=== PATIENT | female | born 1960 | race Caucasian/White ===

== ENCOUNTER 2024-04-11 06:41 | Day surgery (SDC) | payer OTHER ==
[~2024-04-11] VITALS: Ht 149.9 cm; Wt 82.2 kg
[~2024-04-11 06:41] MED LIST: ALBU18HF12 PO; ATOR10TA69 PO; CETI10TA58 PO; CHOL200059 PO; DOCU100C33 PO; EMPA10TA3 PO; ESCI-8 PO; METF-445 PO; MONT-40 PO; OMEP20CA12 PO; PLEC3TAB2 PO; [UNRECOGNIZED DRUG - CODE] PO
[2024-04-11] MEDS ORDERED: SODIUM CHLORIDE 0.9% 1,000 ML ONE (07:18)
[2024-04-11] MEDS: SODIUM CHLORIDE 0.9% 1,000 ML IV ONE (07:43)
[2024-04-11] MEDS ORDERED: FentaNYL CITRATE PF 100 MCG/2 ML VIAL ONE (08:01)
[2024-04-11] MEDS ORDERED: MIDAZOLAM HCL 2 MG/2 ML VIAL ONE (08:02)
[2024-04-11 08:26] LABS: GLUCOMETER DEV NAME(LOC) SDS.; GLUCOSE,POINT OF CARE 122 MG/DL (70-110)
[2024-04-11 09:30] VITALS: PULSE 68; RESP 18; O2SAT 98
[2024-04-11] MEDS ORDERED: MethylPREDNISolone SOD SUCC 125 MG/2 ML VIAL ONE (09:38)
[2024-04-11] MEDS: MethylPREDNISolone SOD SUCC 125 MG/2 ML VIAL IVP ONE (10:00)
[2024-04-11] MEDS ORDERED: DiphenhydrAMINE HCL 50 MG/ML VIAL ONE (10:32)
[2024-04-11] MEDS ORDERED: LIDOCAINE 4% 50 ML SOLUTION ONE (12:00)
[2024-04-11] MEDS ORDERED: LIDOCAINE 2% 11 ML JELLY ONE (12:00)
[2024-04-11] MEDS ORDERED: BENZOCAINE 20% 50 MCG/SPRAY 57 GM ONE (12:00)
[2024-04-11] MEDS ORDERED: ALBUTEROL SULFATE 2.5 MG/0.5 ML NEB SOLUTION NEB ONE (12:00)
== END 2024-04-11 13:10 | disposition home or self-care (01) ==
LOC: SURGERY 06:41
PROVIDERS: ATTEND Internal Medicine Critical Care Medicine
DX: R05.3 Chronic cough (principal); R04.2 Hemoptysis; J38.4 Edema of larynx; E11.9 Type 2 diabetes mellitus without complications; B37.0 Candidal stomatitis; Z79.899 Other long term (current) drug therapy; Z20.822 Contact with and (suspected) exposure to COVID-19
CPT/HCPCS: 31623; 82962; 87206; 87101; 87220; 87070; 31624; 71045; 87015; J3010; J2250; J2919; J7030; 88108; J1200; J7613; Z7610